=== PATIENT | female | born 1955 | race Hispanic/Latino ===

== ENCOUNTER 2020-11-23 19:28 | Inpatient (IN) | payer OTHER ==
[~2020-11-23] VITALS: Ht 154.9 cm; Wt 80.8 kg
[2020-11-23 20:11] LABS: BASOPHILS % (AUTO) 0.1 % (0.0-5.0); HEMATOCRIT 38.5 % (36-48); LYMPHOCYTES % (AUTO) 8.2 % (21.0-51.0); MEAN CORPUSCULAR HEMOGLOBIN 28.7 pg (27.0-33.0); MEAN CORPUSCULAR HGB CONC 34.5 g/dL (32.0-36.0); MEAN CORPUSCULAR VOLUME 83.2 fL (79-99); MONOCYTES % (AUTO) 2.1 % (3.0-13.0); NEUTROPHILS % (AUTO) 88.8 % (40.0-77.0); PLATELET COUNT (AUTO) 254 K/uL (130-400); RED BLOOD CELL COUNT(AUTO) 4.63 MIL/uL (4.00-5.50); WHITE BLOOD COUNT (AUTO) 9.8 K/uL (4.8-10.8)
[2020-11-23 20:23] LABS: CREATININE 0.9 mg/dL (0.5-1.5); POTASSIUM 3.4 mmol/L (3.5-5.1)
[2020-11-23] MEDS ORDERED: DOXYCYCLINE HYCLATE 100 MG TABLET PO ONE (20:26)
[2020-11-23] MEDS ORDERED: DEXAMETHASONE SOD PHOSPHATE 10MG/ML 1ML VIAL ONE (20:27)
[2020-11-23] MEDS ORDERED: CEFTRIAXONE SODIUM 1 GM ONE (20:27)
[2020-11-23] MEDS ORDERED: ACETAMINOPHEN EXTRA STRENGTH 500 MG TABLET ONE (20:27)
[2020-11-23 20:28] LABS: ALBUMIN 2.7 g/dL (3.5-5.0); BILIRUBIN,TOTAL 0.6 mg/dL (0.2-1.0); TOTAL PROTEIN, SERUM 7.4 g/dL (6.0-8.3)
[2020-11-23 20:30] LABS: ABG BASE EXCESS 1.7 mmol/L (-2.0-3.0); ABG HCO3 24.8 mmol/L (21.0-28.0); ABG OXYGEN SATURATION 88.8 % (95.0-99.0); ABG PCO2 35 mmHg (32-45)
[2020-11-23] MEDS ORDERED: SODIUM CHLORIDE 0.9% 1000ML 1,000 ML IV ONE (20:57)
[2020-11-23] MEDS ORDERED: ERGOCALCIFEROL (VITAMIN D2) 50,000 UNIT CAPSULE PO ONE (22:45)
[2020-11-23] MEDS ORDERED: ACETAMINOPHEN 325 MG TAB PO PRN ×2 (22:45)
[2020-11-23] MEDS ORDERED: LACTULOSE 20 GM/30 ML UDCUP PO PRN (22:45)
[2020-11-23] MEDS ORDERED: POTASSIUM CHLORIDE 20 MEQ ERTAB PO SCH (23:45)
[2020-11-24] MEDS ORDERED: SODIUM CHLORIDE 0.9% 100 ML IV ONE (01:22)
[2020-11-24] MEDS ORDERED: ERGOCALCIFEROL (VITAMIN D2) 50,000 UNIT CAPSULE ONE (01:24)
[2020-11-24] MEDS ORDERED: POTASSIUM CHLORIDE 20 MEQ ERTAB PO ONE (01:25)
[2020-11-24 07:34] LABS: BASOPHILS % (AUTO) 0.2 % (0.0-5.0); EOSINOPHILS % (AUTO) 1.7 % (0.0-8.0); HEMATOCRIT 38.4 % (36-48); LYMPHOCYTES % (AUTO) 12.4 % (21.0-51.0); MEAN CORPUSCULAR HEMOGLOBIN 27.8 pg (27.0-33.0); MEAN CORPUSCULAR HGB CONC 33.3 g/dL (32.0-36.0); MEAN CORPUSCULAR VOLUME 83.3 fL (79-99); MONOCYTES % (AUTO) 3.6 % (3.0-13.0); NEUTROPHILS % (AUTO) 81.7 % (40.0-77.0); PLATELET COUNT (AUTO) 239 K/uL (130-400); RED BLOOD CELL COUNT(AUTO) 4.61 MIL/uL (4.00-5.50); RED CELL DISTRIBUTION WIDTH 13.2 % (11.0-15.5); WHITE BLOOD COUNT (AUTO) 9.4 K/uL (4.8-10.8)
[2020-11-24 07:49] LABS: ALBUMIN 2.5 g/dL (3.5-5.0); BILIRUBIN,TOTAL 0.4 mg/dL (0.2-1.0); CREATININE 0.7 mg/dL (0.5-1.5); POTASSIUM 4.1 mmol/L (3.5-5.1)
[2020-11-24 07:57] LABS: CRP QUANTITATIVE 235.7 mg/L (0.00-9.0)
[2020-11-24] MEDS ORDERED: LACTATED RINGERS 1000ML 1,000 ML IV ONE (07:58)
[2020-11-24] MEDS: ENOXAPARIN SODIUM 40 MG/0.4 ML SYRINGE SQ SCH (09:00)
[2020-11-24] MEDS ORDERED: ASPIRIN 81MG TAB.CHEW ONE (09:52)
[2020-11-24] MEDS ORDERED: DOXYCYCLINE HYCLATE 100 MG TABLET PO ONE (09:52)
[2020-11-24] MEDS ORDERED: ASCORBIC ACID 500 MG TAB ONE (09:53)
[2020-11-24] MEDS ORDERED: ENOXAPARIN SODIUM 40 MG/0.4 ML SYRINGE SQ ONE (09:53)
[2020-11-24] MEDS ORDERED: ZINC SULFATE 220 CAPSULE ONE (09:53)
[2020-11-24] MEDS ORDERED: CEFTRIAXONE SODIUM 1 GM ONE ×2 (09:54→21:07)
[2020-11-24] MEDS ORDERED: FAMOTIDINE/PF 20 MG/2 ML VIAL IV ONE ×2 (09:54→21:08)
[2020-11-24] MEDS ORDERED: GUAIFENESIN-CODEINE 5 ML SYRUP PO PRN (21:00)
[2020-11-24] MEDS ORDERED: ATORVASTATIN CALCIUM 20 MG TABLET ONE (21:06)
[2020-11-24] MEDS ORDERED: DEXAMETHASONE SOD PHOSPHATE 10MG/ML 1ML VIAL ONE (21:06)
[2020-11-24] MEDS ORDERED: DOXYCYCLINE 100MG+NS 250ML 250 ML IV ONE (21:07)
[2020-11-24] MEDS ORDERED: GUAIFENESIN-CODEINE 5 ML SYRUP ONE (21:07)
[2020-11-24] MEDS ORDERED: INSULIN HUMULIN R 100 UNIT/ML 3ML ONE (21:25)
[2020-11-25] MEDS ORDERED: POTASSIUM CHLORIDE 20 MEQ ERTAB PO ONE (01:25)
[2020-11-25 05:38] LABS: BASOPHILS % (AUTO) 0.1 % (0.0-5.0); HEMATOCRIT 36.9 % (36-48); LYMPHOCYTES % (AUTO) 8.7 % (21.0-51.0); MEAN CORPUSCULAR HEMOGLOBIN 28.1 pg (27.0-33.0); MEAN CORPUSCULAR HGB CONC 33.6 g/dL (32.0-36.0); MEAN CORPUSCULAR VOLUME 83.7 fL (79-99); NEUTROPHILS % (AUTO) 86.3 % (40.0-77.0); PLATELET COUNT (AUTO) 307 K/uL (130-400); RED BLOOD CELL COUNT(AUTO) 4.41 MIL/uL (4.00-5.50); RED CELL DISTRIBUTION WIDTH 13.4 % (11.0-15.5); WHITE BLOOD COUNT (AUTO) 9.9 K/uL (4.8-10.8)
[2020-11-25 06:08] LABS: ALBUMIN 2.2 g/dL (3.5-5.0); BILIRUBIN,TOTAL 0.4 mg/dL (0.2-1.0); CREATININE 0.6 mg/dL (0.5-1.5); CRP QUANTITATIVE 128.6 mg/L (0.00-9.0); TOTAL PROTEIN, SERUM 6.4 g/dL (6.0-8.3)
[2020-11-25] MEDS: ASCORBIC ACID 500 MG TAB PO SCH (09:00)
[2020-11-25] MEDS: ASPIRIN 81MG TAB.CHEW PO SCH (09:00)
[2020-11-25] MEDS: ENOXAPARIN SODIUM 40 MG/0.4 ML SYRINGE SQ SCH (09:00)
[2020-11-25] MEDS: ZINC SULFATE 220 CAPSULE PO SCH (09:00)
[2020-11-25] MEDS ORDERED: ASCORBIC ACID 500 MG TAB ONE (09:37)
[2020-11-25] MEDS ORDERED: ASPIRIN 81MG TAB.CHEW ONE (09:37)
[2020-11-25] MEDS ORDERED: DOXYCYCLINE HYCLATE 100 MG TABLET PO ONE (09:37)
[2020-11-25] MEDS ORDERED: ENOXAPARIN SODIUM 40 MG/0.4 ML SYRINGE SQ ONE (09:38)
[2020-11-25] MEDS ORDERED: ZINC SULFATE 220 CAPSULE ONE (09:38)
[2020-11-25] MEDS ORDERED: LACTATED RINGERS 1000ML 1,000 ML IV ONE (09:38)
[2020-11-25] MEDS ORDERED: CEFTRIAXONE SODIUM 1 GM ONE (09:38)
[2020-11-25] MEDS ORDERED: FAMOTIDINE/PF 20 MG/2 ML VIAL IV ONE (09:39)
[2020-11-25] MEDS: LACTATED RINGERS 1000ML 1,000 ML IV SCH (13:55)
[2020-11-25] MEDS: INSULIN LISPRO 100 UNIT/ML 3ML SQ SCH (17:00)
[2020-11-26] VITALS: BP 135/66
[2020-11-26] MEDS: DEXAMETHASONE SOD PHOSPHATE 4 MG/ML 1ML VIAL IVP SCH ×2 (00:45→22:35)
[2020-11-26] MEDS: CEFTRIAXONE SODIUM 1 GM IVP SCH ×4 (00:45→22:35)
[2020-11-26] MEDS: ATORVASTATIN CALCIUM 20 MG TABLET PO SCH ×2 (00:46→20:13)
[2020-11-26] MEDS: PAROXETINE HCL 20 MG TABLET PO SCH ×2 (00:46→20:13)
[2020-11-26] MEDS: FAMOTIDINE/PF 20 MG/2 ML VIAL IV SCH ×3 (00:46→20:13)
[2020-11-26] MEDS: DOXYCYCLINE 100MG+NS 250ML IV SCH ×3 (00:48→22:35)
[2020-11-26] MEDS: LACTATED RINGERS 1000ML 1,000 ML IV SCH ×2 (00:49→03:15)
[2020-11-26] MEDS: INSULIN GLARGINE 100 UNITS/ML 10 ML VIAL SQ SCH ×2 (01:06→20:17)
[2020-11-26] MEDS: INSULIN LISPRO 100 UNIT/ML 3ML SQ SCH ×8 (01:08→20:16)
[2020-11-26] MEDS ORDERED: LOSA50TA64 PO (01:39)
[2020-11-26] MEDS ORDERED: METF-445 PO (01:39)
[2020-11-26] MEDS ORDERED: HYDR25TA PO (01:39)
[2020-11-26] MEDS ORDERED: OMEP20CA12 PO (01:43)
[2020-11-26] MEDS ORDERED: PARO25TA15 PO (01:43)
[2020-11-26] MEDS ORDERED: ATOR10 PO (01:43)
[2020-11-26] MEDS ORDERED: AEC81 PO (01:43)
[2020-11-26 04:00] VITALS: BP 120/67
[2020-11-26 07:09] LABS: EOSINOPHILS % (AUTO) 2.9 % (0.0-8.0); HEMATOCRIT 32.2 % (36-48); MEAN CORPUSCULAR HEMOGLOBIN 26.1 pg (27.0-33.0); MEAN CORPUSCULAR HGB CONC 31.4 g/dL (32.0-36.0); MEAN CORPUSCULAR VOLUME 83.2 fL (79-99); MONOCYTES % (AUTO) 0.8 % (3.0-13.0); NEUTROPHILS % (AUTO) 87.8 % (40.0-77.0); PLATELET COUNT (AUTO) 268 K/uL (130-400); RED BLOOD CELL COUNT(AUTO) 3.87 MIL/uL (4.00-5.50); RED CELL DISTRIBUTION WIDTH 14.1 % (11.0-15.5); WHITE BLOOD COUNT (AUTO) 6.1 K/uL (4.8-10.8)
[2020-11-26 08:00] VITALS: BP 146/71
[2020-11-26 08:27] LABS: ALBUMIN 2.1 g/dL (3.5-5.0); BILIRUBIN,TOTAL 0.3 mg/dL (0.2-1.0); CREATININE 1.3 mg/dL (0.5-1.5); POTASSIUM 5.1 mmol/L (3.5-5.1); TOTAL PROTEIN, SERUM 6.6 g/dL (6.0-8.3)
[2020-11-26 09:38] LABS: CREATININE 0.7 mg/dL (0.5-1.5); POTASSIUM 4.3 mmol/L (3.5-5.1)
[2020-11-26 09:39] LABS: BASOPHILS % (AUTO) 0.2 % (0.0-5.0); HEMATOCRIT 37.5 % (36-48); LYMPHOCYTES % (AUTO) 12.4 % (21.0-51.0); MEAN CORPUSCULAR HEMOGLOBIN 28.6 pg (27.0-33.0); MEAN CORPUSCULAR HGB CONC 33.9 g/dL (32.0-36.0); MEAN CORPUSCULAR VOLUME 84.5 fL (79-99); MONOCYTES % (AUTO) 2.6 % (3.0-13.0); NEUTROPHILS % (AUTO) 83.6 % (40.0-77.0); PLATELET COUNT (AUTO) 323 K/uL (130-400); RED BLOOD CELL COUNT(AUTO) 4.44 MIL/uL (4.00-5.50); RED CELL DISTRIBUTION WIDTH 13.4 % (11.0-15.5); WHITE BLOOD COUNT (AUTO) 9.2 K/uL (4.8-10.8)
[2020-11-26 09:42] LABS: ALBUMIN 2.3 g/dL (3.5-5.0); BILIRUBIN,TOTAL 0.4 mg/dL (0.2-1.0); CRP QUANTITATIVE 79.6 mg/L (0.00-9.0); TOTAL PROTEIN, SERUM 6.4 g/dL (6.0-8.3)
[2020-11-26] MEDS: ASCORBIC ACID 500 MG TAB PO SCH (09:54)
[2020-11-26] MEDS: ZINC SULFATE 220 CAPSULE PO SCH (09:54)
[2020-11-26] MEDS: ASPIRIN 81MG TAB.CHEW PO SCH (09:55)
[2020-11-26] MEDS: ENOXAPARIN SODIUM 40 MG/0.4 ML SYRINGE SQ SCH (09:55)
[2020-11-26 12:14] VITALS: BP 129/89
[2020-11-26 16:00] VITALS: BP 164/93
[2020-11-26 19:00] VITALS: BP 142/78
[2020-11-27] VITALS: BP 121/74
[2020-11-27 04:00] VITALS: BP 140/80
[2020-11-27 05:46] LABS: BASOPHILS % (AUTO) 0.3 % (0.0-5.0); HEMATOCRIT 34.3 % (36-48); LYMPHOCYTES % (AUTO) 21.9 % (21.0-51.0); MEAN CORPUSCULAR HEMOGLOBIN 27.8 pg (27.0-33.0); MEAN CORPUSCULAR HGB CONC 32.9 g/dL (32.0-36.0); MEAN CORPUSCULAR VOLUME 84.3 fL (79-99); PLATELET COUNT (AUTO) 317 K/uL (130-400); RED BLOOD CELL COUNT(AUTO) 4.07 MIL/uL (4.00-5.50); RED CELL DISTRIBUTION WIDTH 13.4 % (11.0-15.5); WHITE BLOOD COUNT (AUTO) 6.2 K/uL (4.8-10.8)
[2020-11-27 06:03] LABS: CREATININE 0.7 mg/dL (0.5-1.5); POTASSIUM 4.4 mmol/L (3.5-5.1)
[2020-11-27] MEDS: INSULIN LISPRO 100 UNIT/ML 3ML SQ SCH ×6 (06:44→16:58)
[2020-11-27 08:00] VITALS: BP 167/88
[2020-11-27] MEDS ORDERED: DOXY100C2 PO (08:41)
[2020-11-27] MEDS ORDERED: APIX2.5T PO (08:41)
[2020-11-27] MEDS ORDERED: DEXA6TAB PO (08:41)
[2020-11-27] MEDS: ASPIRIN 81MG TAB.CHEW PO SCH (09:36)
[2020-11-27] MEDS: ASCORBIC ACID 500 MG TAB PO SCH (09:36)
[2020-11-27] MEDS: FAMOTIDINE/PF 20 MG/2 ML VIAL IV SCH (09:36)
[2020-11-27] MEDS: ZINC SULFATE 220 CAPSULE PO SCH (09:36)
[2020-11-27] MEDS: ENOXAPARIN SODIUM 40 MG/0.4 ML SYRINGE SQ SCH (09:38)
[2020-11-27] MEDS: DOXYCYCLINE 100MG+NS 250ML IV SCH (11:01)
[2020-11-27] MEDS: CEFTRIAXONE SODIUM 1 GM IVP SCH (11:01)
[2020-11-27 12:00] VITALS: BP 145/84
== END 2020-11-27 18:50 | disposition home or self-care (01) | DRG 177 ==
LOC: EDH 19:28 → EDHIP 19:29 → 4AH 11-26 00:07
PROVIDERS: ADMIT Internal Medicine; ATTEND Internal Medicine
PROC: XW13325 Transfusion of Convalescent Plasma (Nonautologous) into Peripheral Vein, Percutaneous Approach, New Technology Group 5 (ICD-10-PCS; principal; 2020-11-24)
DX: U07.1 COVID-19 (principal); J12.82 Pneumonia due to coronavirus disease 2019; J96.01 Acute respiratory failure with hypoxia; D68.59 Other primary thrombophilia; E87.1 Hypo-osmolality and hyponatremia; E44.0 Moderate protein-calorie malnutrition; E87.6 Hypokalemia; I10 Essential (primary) hypertension; E78.5 Hyperlipidemia, unspecified; E11.9 Type 2 diabetes mellitus without complications; Z68.33 Body mass index [BMI] 33.0-33.9, adult; Z88.0 Allergy status to penicillin; Z88.2 Allergy status to sulfonamides; Z91.018 Allergy to other foods
CPT/HCPCS: 36415; 36600; 71045; 71250; 80048; 80053; 82803; 82948; 83605; 83690; 83880; 84145; 84484; 85025; 85378; 86140; 86850; 86900; 86901; 86927; 87040; 93005; 94760; G0378; J0696; J1100; J1650; J1815; J3490; J7030; J7120